=== PATIENT | male | born 1925 | race Caucasian/White ===

== ENCOUNTER 2016-05-08 08:58 | Observation (INO) | payer MEDICARE ==
[2016-05-08] MEDS ORDERED: Sodium Chloride 0.9% 1000 ML 1,000 ML IV SCH (09:30)
[2016-05-08] MEDS ORDERED: BABY ASPIRIN 81 MG CHEW PO ONE (09:30)
--- NOTE | 2016-05-08 09:37 | ERPHSYRPT ---
- History of Present Illness Time Seen by Provider: 05/08/16 09:25 Historian: patient Exam Limitations: clinical condition Patient Subjective Stated Complaint: pt co stuffy nose,coughing up white - yellow sputum, sob when up moving Triage Nursing Assessment: pt alert, resp easy, skin w/d. stuffy nose, no edema noted, pt able to walk in on own Physician History: PATIENT WITH HISTORY OF HYPERTENSION COMPLAINS OF PRODUCTIVE COUGH, EXERTIONAL DYSPNEA X 3 DAYS. HAS CHEST PAIN PRESSURE DISCOMFORT ALL DAY YESTERDAY UNTIL HE FELL ASLEEP. DENIES CHEST PAIN, PRESSURE DISCOMFORT TODAY, DIAPHORESIS OR PALPITATIONS. Timing/Duration: day(s) Activities at Onset: none Quality: pressure Location: substernal Chest Pain Radiation: no radiation Severity of Pain-Max: moderate Severity of Pain-Current: none Modifying Factors: Improves With: coughing Associated Symptoms: cough, fatigue, weakness Nitro Today/Relief: 0.4 mg x 1, provided by ED Aspirin Treatment Today: 81 mg x 4, provided by ED Allergies/Adverse Reactions: monosodium glutamate Allergy (Intermediate, Verified 05/08/16 09:14) Stomach Cramps states "has to have stomach pumped out" Home Medications: Acetaminophen 500 mg [Tylenol Extra Strength 500 mg] 500 mg PO Q6HPRN PRN 11/18/12 [History] Amiodarone HCl [Pacerone] 200 mg PO DAILY 11/18/12 [History] Aspirin EC 81 mg [Ecotrin 81 mg] 81 mg PO HS 11/18/12 [History] Cyanocobalamin 500 Mcg [Vitamin B-12 500 MCG] 1,000 mcg PO UD 11/18/12 [ History] Hydrochlorothiazide 25 mg [hydroDIURIL 25 MG] 25 mg PO DAILY 11/18/12 [ History] Levothyroxine Sodium 112 Mcg [Synthroid 112 Mcg] 112 mcg PO DAILY 11/18/12 [History] Omeprazole 20 MG [Prilosec 20 mg] 20 mg PO DAILY 11/18/12 [History] Terazosin HCl 5 mg [Hytrin 5Mg] 5 mg PO DAILY 11/18/12 [History] Tramadol HCl 50 mg [Ultram 50 mg] 50 mg PO Q6H PRN PRN 11/18/12 [History] Alprazolam 0.5 mg PO HS 08/15/15 [History] Cholecalciferol (Vitamin D3) [Vitamin D3] 1,000 unit PO DAILY 08/15/15 [History] Ferrous Sulfate 325 mg PO DAILY 08/15/15 [History] Finasteride 5 mg [Proscar 5 MG] 5 mg PO HS 08/15/15 [History] Loratadine 10 mg [Claritin 10 mg] 10 mg PO DAILY 08/15/15 [History] Warfarin Sodium 2.5 mg [Coumadin 2.5 MG] 2.5 mg PO DAILY 08/15/15 [History ] Hx Tetanus, Diphtheria Vaccination/Date Given: Yes Hx Influenza Vaccination/Date Given: Yes Hx Pneumococcal Vaccination/Date Given: Yes Immunizations Up to Date: Yes - Review of Systems Constitutional: No Fever, No Chills Eyes: No Symptoms Ears, Nose, & Throat: No Symptoms Respiratory: Cough, Dyspnea Cardiac: Chest Pain, No Edema, No Syncope Abdominal/Gastrointestinal: No Symptoms, No Abdominal Pain, No Nausea, No Vomiting, No Diarrhea Genitourinary Symptoms: No Symptoms, No Dysuria Musculoskeletal: No Symptoms, No Back Pain, No Neck Pain Skin: No Rash Neurological: No Dizziness, No Focal Weakness, No Sensory Changes Psychological: No Symptoms Endocrine: No Symptoms All Other Systems: Reviewed and Negative - Past Medical History Pertinent Past Medical History: Yes Neurological History: No Pertinent History ENT History: No Pertinent History Cardiac History: Arrhythmia, Coronary Artery Disease, Hypertension Respiratory History: No Pertinent History Endocrine Medical History: Hypothyroidism Musculoskeletal History: Arthritis GI Medical History: Colorectal Cancer, Hemorrhoids, Hernia, Polyps History: No Pertinent History Psycho-Social History: Anxiety, Depression Male Reproductive Disorders: Prostate Problems - Past Surgical History Past Surgical History: Yes Neuro Surgical History: No Pertinent History Cardiac: Cardiac Catheterization, Cardiac Stent Respiratory: No Pertinent History Gastrointestinal: Cholecystectomy, Colon Resection, Hernia Repair Genitourinary: No Pertinent History Musculoskeletal: Orthopedic Surgery Male Surgical History: No Pertinent History Other Surgical History: raul knee replacement,right 2006,left 2010,raul cataract with lens implant - Social History Smoking Status: Former smoker Exposure to second hand smoke: No Drug Use: none Patient Lives Alone: No - Nursing Vital Signs Temperature: 97.9 F Temperature Source: Oral Pulse Rate: 76 Respiratory Rate: 20 Pain Intensity: 3 - Physical Exam General Appearance: no apparent distress, alert Eye Exam: PERRL/EOMI, eyes nml inspection Ears, Nose, Throat Exam: normal ENT inspection, moist mucous membranes Neck Exam: normal inspection, non-tender, supple, full range of motion Respiratory Exam: normal breath sounds, lungs clear, No respiratory distress Cardiovascular Exam: regular rate/rhythm, normal heart sounds Gastrointestinal/Abdomen Exam: soft, normal bowel sounds, No tenderness, No mass Back Exam: normal inspection, No CVA tenderness, No vertebral tenderness Extremity Exam: normal inspection, normal range of motion Neurologic Exam: alert, oriented x 3, cooperative, normal mood/affect, sensation nml, No motor deficits Skin Exam: normal color, warm, dry SpO2 Interpretation: normal SpO2: 96 Oxygen Delivery: Room Air - Course EKG Interpreted by Me: RATE, Sinus Rhythm, NORMAL AXIS, 1st degree AV Block ( RATE 69) - Radiology Exams Chest X-ray Interpretation: Discussed w/ radiologist (STABLE NONACUTE UNDERINFLATED CHEST, STABLE MINIMAL BIBASILAR ATELECTASIS/SCARRING) Ordered Tests: Active Orders 24 hr Category Date Time Status Up With Assistance ROUTINE Activity 05/08/16 11:20 Ordered Admission/Status Order ROUTINE Care 05/08/16 11:19 Ordered Call Admit Doctor for Orders ROUTINE Care 05/08/16 11:19 Ordered Etcher Machine STAT Care 05/08/16 09:30 Active Code Status Order ROUTINE Care 05/08/16 11:19 Ordered EKG-ER Only STAT Care 05/08/16 09:30 Active IV Care Q6H Care 05/08/16 11:19 Ordered IV Insertion STAT Care 05/08/16 09:30 Active Implement Chest Pain Pathway ROUTINE Care 05/08/16 11:19 Ordered Oxygen-ED Only NASAL CANNULA 2 lpm Care 05/08/16 09:30 Active Chaka Jamal, Apply ROUTINE Care 05/08/16 11:19 Ordered Telemetry ROUTINE Care 05/08/16 11:19 Ordered Vital Signs Q4H Care 05/08/16 11:19 Ordered Weight,Daily 0600 Care 05/08/16 11:19 Ordered Regular Diet Diet 05/08/16 Dinner Ordered CHEST 1 VIEW (PORTABLE) Stat Exams 05/08/16 09:31 Completed BLOOD CULTURE Stat Lab 05/08/16 10:15 Received CBC W DIFF Stat Lab 05/08/16 09:32 Completed CMP Stat Lab 05/08/16 09:32 Completed LIPID PROFILE AM.LAB Lab 05/09/16 04:00 Ordered NT PRO BNP Stat Lab 05/08/16 09:32 Completed PROTIME WITH INR Stat Lab 05/08/16 09:32 Completed TROPONIN Q3H Lab 05/08/16 10:13 Completed TROPONIN Q3H Lab 05/08/16 12:45 Ordered TROPONIN Q3H Lab 05/08/16 15:45 Ordered TROPONIN Q3H Lab 05/08/16 18:45 Ordered TROPONIN Q3H Lab 05/08/16 21:45 Ordered EKG Q8HX2,QAMX3,PRN RT 05/08/16 11:19 Ordered Pulse Oximetry Q4H RT 05/08/16 11:19 Ordered Transfer Order Routine Transfer 05/08/16 11:18 Ordered Medication Summary Generic Name Dose Route Start Last Admin Trade Name Freq PRN Reason Stop Dose Admin Acetaminophen 650 mg 05/08/16 11:19 Tylenol 325 Mg PO 06/07/16 11:18 Q4H PRN PRN PAIN AND/OR FEVER Al Hydrox/Mg Hydrox/Simethicone 30 ml 05/08/16 11:19 Maalox Es 30 Ml Unit Dose PO 06/07/16 11:18 Q4H PRN PRN INDIGESTION Sodium Chloride 1,000 mls @ 50 mls/hr 05/08/16 09:30 05/08/16 09:44 Sodium Chloride 0.9% 1000 Ml IV 06/07/16 09:29 50 mls/hr .Q20H STACY Administration Ceftriaxone Sodium/Dextrose 50 mls @ 100 mls/hr 05/08/16 11:30 Rocephin 1 Gm-D5w 50 Ml Bag IV 06/07/16 11:29 Q24H STACY Sodium Chloride 500 mls @ 20 mls/hr 05/08/16 11:30 Sodium Chloride 0.9% 500 Ml IV 06/07/16 11:29 .Q24H STACY Magnesium Hydroxide 30 - 60 ml 05/08/16 11:19 Milk Of Magnesia 30 Ml PO 06/07/16 11:18 QDP PRN CONSTIPATION Nitroglycerin 0.4 mg 05/08/16 11:19 Nitrostat 0.4 Mg Tablet SL 06/07/16 11:18 .Q5MIN PRN CHEST PAIN Ondansetron HCl 4 mg 05/08/16 11:19 Zofran 4 Mg/2 Ml Vial IV 06/07/16 11:18 Q4H PRN PRN NAUSEA/VOMITING Senna/Docusate Sodium 2 udtab 05/08/16 11:19 Senokot-S Tablet PO 06/07/16 11:18 BID PRN PRN CONSTIPATION Discontinued Medications Generic Name Dose Route Start Last Admin Trade Name Freq PRN Reason Stop Dose Admin Aspirin 324 mg 05/08/16 09:30 05/08/16 09:44 Baby Aspirin 81 Mg Chew PO 05/08/16 09:31 324 mg STAT ONE Administration Aspirin Confirm 05/08/16 09:40 Baby Aspirin 81 Mg Chew Administered 05/08/16 09:41 Dose 324 mg .ROUTE .STK-MED ONE Sodium Chloride Confirm 05/08/16 09:39 Sodium Chloride 0.9% 1000 Ml Administered 05/08/16 09:40 Dose 1,000 mls @ ud .ROUTE .STK-MED ONE Ceftriaxone Sodium/Dextrose 50 mls @ 100 mls/hr 05/08/16 10:16 05/08/16 10:26 Rocephin 1 Gm-D5w 50 Ml Bag IV 05/08/16 10:45 100 mls/hr STAT ONE Administration Lab/Rad Data: Laboratory Result Diagrams 05/08/16 09:32 05/08/16 09:32 Laboratory Results 05/08/16 05/08/16 05/08/16 Range/Units 10:13 09:32 09:32 WBC (4.0-10.5) K/mm3 RBC (4.1-5.6) M/mm3 Hgb (12.5-18.0) gm/dl Hct (42-50) % MCV (78-100) fl MCH (26-32) pg MCHC (32-36) g/dl RDW (11.5-14.0) % Plt Count (150-450) K/mm3 MPV (6-9.5) fl Gran % (36.0-66.0) % Lymphocytes % (24.0-44.0) % Monocytes % (0.0-12.0) % Eosinophils % (0.00-5.0) % Basophils % (0.0-0.4) % Basophils # (0-0.4) INR 3.56 H (0.8-3.0) Sodium 139 (136-145) mEq/L Potassium 3.6 (3.5-5.1) mEq/L Chloride 101 (98-107) mEq/L Carbon Dioxide 23.8 (21-32) mEq/L Anion Gap 17.4 H (5-15) MEQ/L BUN 14 (9-20) mg/dL Creatinine 1.42 H (0.55-1.30) mg/dl Estimated GFR 50 ML/MIN Glucose 141 H (70-110) MG/DL Calcium 8.6 (8.5-10.1) mg/dL Total Bilirubin 1.1 H (0.2-1.0) mg/dL AST 18 (15-37) U/L ALT 9 L (12-78) U/L Alkaline Phosphatase 82 (46-116) U/L Troponin I < 0.017 (0.000-0.056) ng/ml NT-Pro-B Natriuret Pep 900 H (0-450) pg/ml Serum Total Protein 7.5 (6.4-8.2) gm/dL Albumin 3.2 L (3.4-5.0) g/dL 05/08/16 Range/Units 09:32 WBC 11.1 H (4.0-10.5) K/mm3 RBC 4.22 (4.1-5.6) M/mm3 Hgb 13.2 (12.5-18.0) gm/dl Hct 40.0 L (42-50) % MCV 94.8 (78-100) fl MCH 31.3 (26-32) pg MCHC 33.0 (32-36) g/dl RDW 13.7 (11.5-14.0) % Plt Count 233 (150-450) K/mm3 MPV 9.8 H (6-9.5) fl Gran % 68.4 H (36.0-66.0) % Lymphocytes % 17.5 L (24.0-44.0) % Monocytes % 11.9 (0.0-12.0) % Eosinophils % 1.8 (0.00-5.0) % Basophils % 0.4 (0.0-0.4) % Basophils # 0.04 (0-0.4) INR (0.8-3.0) Sodium (136-145) mEq/L Potassium (3.5-5.1) mEq/L Chloride (98-107) mEq/L Carbon Dioxide (21-32) mEq/L Anion Gap (5-15) MEQ/L BUN (9-20) mg/dL Creatinine (0.55-1.30) mg/dl Estimated GFR ML/MIN Glucose (70-110) MG/DL Calcium (8.5-10.1) mg/dL Total Bilirubin (0.2-1.0) mg/dL AST (15-37) U/L ALT (12-78) U/L Alkaline Phosphatase (46-116) U/L Troponin I (0.000-0.056) ng/ml NT-Pro-B Natriuret Pep (0-450) pg/ml Serum Total Protein (6.4-8.2) gm/dL Albumin (3.4-5.0) g/dL - Progress Progress Note: 05/08/16 11:14 PATIENT GIVEN BABY ASPIRIN 81MG X 4 TABLETS, ANTIBIOTIC ROCEPHIN 1GM IVPB, AFTER 2 SETS OF BLOOD CULTURES 05/08/16 11:15 PATIENT HAD NO EPISODES OF CHEST PAIN WHILE IN EMERGENCY Blood Culture(s) Obtained: Yes Antibiotics given: Yes (rocephin) Discussed with .: Shan (at 1105 for observation) Will see patient in: hospital (observation) - Departure Time of Disposition: 11:20 Departure Disposition: Observation Clinical Impression: ACUTES CHEST PAIN, ACUTE BRONCHITIS Condition: Stable Critical Care Time: No Referrals: NIKA CABRERA [Primary Care Provider] -
[2016-05-08] MEDS ORDERED: Sodium Chloride 0.9% 1000 ML 1,000 ML ONE (09:39)
[2016-05-08] MEDS ORDERED: BABY ASPIRIN 81 MG CHEW ONE (09:40)
--- NOTE | 2016-05-08 09:55 | XRAY ---
Indication: Cough and chest pain. Comparison: July 18, 2011 Portable apical lordotic chest again underinflated accentuating the cardiopulmonary structures. Stable minimal bibasilar atelectasis/scarring. No focal infiltrate, consolidation, or large effusion. Heart is not enlarged. Bony thorax intact again with osteopenia and degenerative changes. Impression: Stable nonacute underinflated chest with chronic features.
[2016-05-08 10:00] LABS: BASOPHIL % 0.4 % (0.0-0.4); Eosinophil % 1.8 % (0.00-5.0); Granulocytes % 68.4 % (36.0-66.0); Lymphocytes % 17.5 % (24.0-44.0); Mean Cell Volume 94.8 fl (78-100); Mean Corpuscular Hemoglobin 31.3 pg (26-32); Mean Platelet Volume 9.8 fl (6-9.5); Monocytes % 11.9 % (0.0-12.0); Platelet Count 233 K/mm3 (150-450); Red Blood Count 4.22 M/mm3 (4.1-5.6); Red Cell Distribution Width 13.7 % (11.5-14.0); White Blood Count 11.1 K/mm3 (4.0-10.5)
[2016-05-08 10:06] LABS: INR 3.56 (0.8-3.0); PROTIME 38.4 SECONDS (8.83-12.87)
[2016-05-08 10:11] LABS: ALBUMIN 3.2 g/dL (3.4-5.0); ANION GAP 17.4 MEQ/L (5-15); BILIRUBIN,TOTAL 1.1 mg/dL (0.2-1.0); Carbon Dioxide 23.8 mEq/L (21-32); Potassium 3.6 mEq/L (3.5-5.1); Total Protein 7.5 gm/dL (6.4-8.2)
[2016-05-08] MEDS ORDERED: ROCEPHIN 1 Gm-D5w 50 ml Bag** 50 ML IV ONE (10:16)
[2016-05-08] MEDS ORDERED: MILK OF MAGNESIA 30 ML PO PRN (11:19)
[2016-05-08] MEDS ORDERED: Nitrostat 0.4 MG Tablet SL PRN (11:19)
[2016-05-08] MEDS ORDERED: MAALOX ES 30 ML UNIT DOSE PO PRN (11:19)
[2016-05-08] MEDS ORDERED: Zofran 4 MG/2 ML VIAL IV PRN (11:19)
[2016-05-08] MEDS ORDERED: TYLENOL 325 MG PO PRN (11:19)
[2016-05-08] MEDS ORDERED: Senokot-S Tablet PO PRN (11:19)
[2016-05-08] MEDS ORDERED: Sodium Chloride 0.9% 500 ML 500 ML IV SCH (11:30)
[2016-05-08] MEDS: ROCEPHIN 1 Gm-D5w 50 ml Bag** 50 ML IV SCH (12:11)
[2016-05-08] MEDS: Zithromax 500 MG/ 250 ML NaCl Premix 250 ML IV SCH (13:36)
[2016-05-08] MEDS ORDERED: TYLENOL EXTRA STRENGTH 500 MG PO PRN (16:24)
[2016-05-08] MEDS ORDERED: xanAX 0.5 MG PO PRN (16:24)
[2016-05-08] MEDS ORDERED: CLARITIN 10 MG PO PRN (16:24)
[2016-05-08] MEDS ORDERED: FEOSOL 325 MG PO PRN (16:30)
[2016-05-08] MEDS ORDERED: Vitamin B-12 500 MCG PO PRN (16:30)
[2016-05-08] MEDS ORDERED: ECOTRIN 81 MG PO SCH (22:00)
[2016-05-08] MEDS ORDERED: Proscar 5 MG PO SCH (22:00)
[2016-05-08] MEDS ORDERED: TERAZOSIN 5 MG PO SCH (22:00)
[2016-05-09 07:28] VITALS: BP 132/60; PULSE 53; O2SAT 92
--- NOTE | 2016-05-09 08:46 | PCM.DCORD ---
- Discharge Discharge Date: 05/09/16 Disposition: Home, Self-Care Condition: Stable Prescriptions: New Warfarin Sodium 2 mg [Coumadin 2 MG] 2 mg PO DAILY #30 tablet Continue Cyanocobalamin 500 Mcg [Vitamin B-12 500 MCG] 1,000 mcg PO UD Amiodarone HCl [Pacerone] 200 mg PO DAILY Omeprazole 20 MG [Prilosec 20 mg] 20 mg PO DAILY Levothyroxine Sodium 112 Mcg [Synthroid 112 Mcg] 112 mcg PO DAILY Acetaminophen 500 mg [Tylenol Extra Strength 500 mg] 500 mg PO Q6HPRN PRN PRN Reason: Pain Hydrochlorothiazide 25 mg [hydroDIURIL 25 MG] 25 mg PO DAILY Aspirin EC 81 mg [Ecotrin 81 mg] 81 mg PO HS Terazosin HCl 5 mg [Hytrin 5Mg] 5 mg PO HS Cholecalciferol (Vitamin D3) [Vitamin D3] 1,000 unit PO DAILY Alprazolam 0.5 mg PO HS PRN PRN PRN Reason: Insomnia Finasteride 5 mg [Proscar 5 MG] 5 mg PO HS Ferrous Sulfate 325 mg PO UD Loratadine 10 mg [Claritin 10 mg] 10 mg PO DAILY PRN PRN PRN Reason: Allergies Discontinued Warfarin Sodium 2.5 mg [Coumadin 2.5 MG] 5 mg PO DAILY Additional Instructions: Please follow up in one week with Dr. Torrez. Please fill your antibiotic prescription and take as directed. Please decrease Coumadin to 2mg daily. You have a new prescription for this to take. Follow up with: NIKA TORREZ [Primary Care Provider] -
--- NOTE | 2016-05-09 09:49 | SSS ---
DISCHARGE DIAGNOSES: 1) BRONCHITIS. 2) CHEST PAIN. HISTORY OF PRESENT ILLNESS: The patient is an 89 year-old white male patient presenting to the emergency room with complaints of upper respiratory tract symptoms or infection. His had recently been ill and actually hospitalized for acute exacerbation of chronic obstructive pulmonary disease. The patient had complained of chest pains in the emergency room and was therefore subsequently admitted to the hospital to rule out myocardial infarction for treatment of bronchitis. PAST MEDICAL/SURGICAL HISTORY: Significant for chronic obstructive pulmonary disease, atrial fibrillation, congestive heart failure. He has had previous cholecystectomy, partial colon resection, hernia repair and orthopedic surgery, bilateral knee replacement in 2006 and 2010, bilateral cataracts with lens implantation. HOME MEDICATIONS: Tylenol, Pacerone, aspirin, vitamin B12, hydrodiuril, Synthroid, Prilosec, Hytrin, Ultram, Alprazolam, vitamin B, iron, Proscar, Claritin, and Coumadin. ALLERGIES: MONOSODIUM GLUTAMATE. PHYSICAL EXAMINATION: Revealed an elderly white male patient in no obvious distress at the time of my evaluation. His vital signs currently show temperature 97.9F, pulse 61, respiratory rate 16, blood pressure 120/60. O2 saturations 97% on room air. HEENT: Normocephalic, atraumatic. Pupils equal round reactive to light. Extraocular movements intact. Oropharynx is dry. NECK: Supple without lymphadenopathy, thyromegaly or JVD. CHEST: Clear to auscultation with good air movement bilaterally. HEART: Regular rate and rhythm without murmurs, rubs or gallops. ABDOMEN: Soft, nontender, nondistended without hepatosplenomegaly or masses. EXTREMITIES: Without clubbing or cyanosis. There is trace edema. NEUROLOGIC: The patient is alert and oriented x3. No focal deficits were noted. LAB DATA AND TESTS: In the emergency room a nonfasting glucose was 141, BUN 14, creatinine 1.42. Electrolytes were normal. Protein slightly low at 3.2. ProBNP was elevated at 900. He had international normalized ratio slightly elevated at 3.56. CBC showed white blood cell count 11,100, hemoglobin 13.2, PLT count 233,000 with no significant left shift. Troponin was less than 0.017. He had a TSH of 1.364 and T4 of 13 both within normal limits. He had a lipid panel showing HDL cholesterol 61 and LDL of 76. Chest x-ray showed stable nonacute chest with chronic features. HOSPITAL COURSE: The patient was admitted to the medicine luis and monitored overnight on telemetry. He showed his usual atrial fibrillation with rate in acceptable range. The patient's Coumadin was decreased from 2.5 to 2 due to slight elevation of PT and international normalized ratio. The patient is discharged home on Augmentin 875 twice a day for the bronchitis. He was instructed to follow up in the office early next week or to return for any problems in the interim.
[2016-05-09] MEDS ORDERED: SYNTHROID 112 MCG PO SCH (10:00)
[2016-05-09] MEDS ORDERED: Cordarone 200 MG PO SCH (10:00)
[2016-05-09] MEDS ORDERED: AMIODARONE HCL 200 MG PO SCH (10:00)
[2016-05-09] MEDS ORDERED: NON-FORMULARY ITEM (Omeprazole 20 Mg [Prilosec 20 Mg] 20 MG) PO SCH (10:00)
[2016-05-09] MEDS ORDERED: hydroDIURIL 25 MG PO SCH (10:00)
[2016-05-09] MEDS ORDERED: Protonix 40MG Tablet PO SCH (10:00)
[2016-05-09] MEDS ORDERED: Coumadin 2.5 MG PO SCH (10:00)
[2016-05-09] MEDS ORDERED: VITAMIN D PO SCH (12:00)
--- NOTE | 2016-05-09 12:28 | XRAY ---
Indication: Bruit. Two-dimensional sonogram and color Doppler imaging of the carotid arteries of the neck performed. Comparison: None Examination of the right carotid circulation demonstrates slightly tortuous common carotid artery. Minimal eccentric calcified plaquing at the level of the bulb and proximal internal carotid artery. PSV of the CCA is 73 cm/s. PSV of the ICA is 91 cm/s. ICA/CCA ratio is 1.3. Normal antegrade vertebral artery flow. Examination of the left carotid circulation demonstrates intimal thickening at the level of the bulb. Mild smooth soft plaquing in the distal internal carotid artery. PSV of the CCA is 84 cm/s. PSV of the ICA is 84 cm/s. ICA/CCA ratio is 1.0. Normal antegrade vertebral artery flow. Impression: Minimal arteriosclerotic disease bilaterally as detailed. Velocity measurements and ratios are however negative for hemodynamically significant flow-limiting stenosis.
[2016-05-09] MEDS: ROCEPHIN 1 Gm-D5w 50 ml Bag** 50 ML IV SCH (12:31)
[2016-05-09] MEDS: Zithromax 500 MG/ 250 ML NaCl Premix 250 ML IV SCH (12:32)
[2016-05-09] MEDS ORDERED: Coumadin 2 MG PO SCH (18:00)
--- NOTE | 2016-05-13 13:29 | ECHO ---
DATE OF PROCEDURE: 05/09/2016 INDICATIONS FOR PROCEDURE: Chest pain. The M-mode and 2D and Doppler echocardiogram including color-flow Doppler shows normal contractility of the left ventricle with an ejection fraction calculated to be 51%. The aortic valve opens well. There is mild aortic regurgitation present. There is mitral valvular calcification associated with mild mitral regurgitation. The aortic root is normal with a dimension of 3.2 cm. The left atrium is mildly dilated with a dimension of 5.4 cm. The right ventricle and right ventricular electrode is noted. There is mild pulmonic regurgitation present. The left ventricle is normal in size with a dimension of 4.4 cm. The septal wall thickness is normal with a dimension of 1.0 cm, with left ventricular hypertrophy with thickness of 1.7 cm. There is no thrombus in the left ventricular apex. There is mitral valve E to A ratio of 0.7 cm consistent with impaired left ventricular relaxation. There is no pericardial effusion. The echocardiogram was technically difficult. IMPRESSION: 1. NORMAL CONTRACTILITY OF THE LEFT VENTRICLE. 2. MILD AORTIC REGURGITATION. 3. MILD PULMONIC REGURGITATION. 4. MILD MITRAL REGURGITATION. 5. MODERATE ASYMMETRIC LEFT VENTRICULAR HYPERTROPHY. 6. MODERATE LEFT ATRIAL DILITATION. 7. NORMAL CONTRACTILITY LEFT VENTRICLE. 8. THERE IS EVIDENCE OF IMPAIRED LEFT VENTRICULAR RELAXATION.
== END 2016-05-09 12:25 | disposition home or self-care (01) ==
LOC: ED 08:58 → MED SURG 11:41
PROVIDERS: ADMIT Family Medicine; ATTEND Family Medicine
DX: J20.9 Acute bronchitis, unspecified (principal); R07.89 Other chest pain; J44.9 Chronic obstructive pulmonary disease, unspecified; I48.91 Unspecified atrial fibrillation; I50.9 Heart failure, unspecified; I10 Essential (primary) hypertension; I35.1 Nonrheumatic aortic (valve) insufficiency; I37.1 Nonrheumatic pulmonary valve insufficiency; I34.0 Nonrheumatic mitral (valve) insufficiency; Z79.01 Long term (current) use of anticoagulants; Z79.899 Other long term (current) drug therapy; Z90.49 Acquired absence of other specified parts of digestive tract
CPT/HCPCS: 36000; 36415; 71010; 80053; 80061; 83721; 83880; 84403; 84436; 84443; 84484; 85025; 85610; 87040; 93005; 93041; 93268; 93306; 93880; 96360; 96361; 96365; 99284; G0378; J0456; J0696